=== PATIENT | female | born 1955 | race Caucasian/White ===

== ENCOUNTER 2022-04-10 09:40 | Outpatient (CLI) | payer OTHER ==
[~2022-04-10 09:40] MED LIST: BIOTIN1000 MCG; EVISTA60 MG; VITAMIN D400 UNI2
== END 2022-04-10 09:50 | disposition home or self-care (01) ==
LOC: PPH VACUNA 09:40
PROVIDERS: ATTEND Emergency Medicine Pediatric Emergency Medicine
DX: Z23 Encounter for immunization (principal)

== ENCOUNTER 2023-04-23 15:45 | Emergency (ER) | payer OTHER ==
[~2023-04-23] VITALS: Ht 157.5 cm; Wt 58.1 kg
[2023-04-23] MEDS ORDERED: LEVOXYL50 MCG PO (16:01)
== END 2023-04-23 19:57 | disposition home or self-care (01) ==
LOC: ER 15:45
DX: M25.512 Pain in left shoulder (principal); Z91.013 Allergy to seafood; Z91.041 Radiographic dye allergy status; Z88.0 Allergy status to penicillin; Z88.6 Allergy status to analgesic agent; Z88.2 Allergy status to sulfonamides
CPT/HCPCS: 96372; 99284; J1100